=== PATIENT | female | born 1990 | race Caucasian/White ===

== ENCOUNTER 2018-01-16 16:38 | Emergency (ER) | payer OTHER ==
[~2018-01-16] VITALS: Ht 162.6 cm; Wt 112.5 kg
[~2018-01-16 16:38] MED LIST: LEXAPRO10 MG PO; MECLIZINE HCL25 MG PO
[2018-01-16] MEDS ORDERED: ONDANSETRON HCL 4 MG ORAL DISINTEGRATING TAB PO ONE (17:15)
[2018-01-16] MEDS ORDERED: DICYCLOMINE HCL 20 MG TAB PO ONE (18:00)
[2018-01-16] MEDS ORDERED: PANTOPRAZOLE SO40 MG PO (19:02)
[2018-01-16] MEDS ORDERED: SIMETHICONE80 MG PO (19:02)
[2018-01-16] MEDS ORDERED: BENTYL10 MG/1 ML PO (19:02)
[2018-01-16] MEDS ORDERED: PEPCID20 MG PO (19:02)
[2018-01-16] MEDS ORDERED: ZOFRAN ODT4 MG SL (19:03)
[2018-01-16] MEDS ORDERED: PROMETHAZINE HCL 25 MG TAB PO ONE (19:15)
[2018-01-16 19:19] VITALS: BP 110/70
== END 2018-01-16 19:21 | disposition home or self-care (01) ==
LOC: FSED 16:38
DX: R10.84 Generalized abdominal pain (principal); R11.2 Nausea with vomiting, unspecified; R19.7 Diarrhea, unspecified; E86.9 Volume depletion, unspecified; A08.0 Rotaviral enteritis; K52.9 Noninfective gastroenteritis and colitis, unspecified; K25.3 Acute gastric ulcer without hemorrhage or perforation
CPT/HCPCS: 99283